=== PATIENT | female | born 1955 | race Two or more races ===

== ENCOUNTER 2020-02-15 06:20 | Day surgery (SDC) | payer OTHER | END 2020-02-15 10:55 | disposition home or self-care (01) | LOC: AMB-ENDOS 06:20 → CIR.AMB 13:05 | PROVIDERS: ATTEND Internal Medicine Gastroenterology | DX: K29.50 Unspecified chronic gastritis without bleeding (principal); K22.2 Esophageal obstruction; K44.9 Diaphragmatic hernia without obstruction or gangrene ==